=== PATIENT | female | born 1965 | race Two or more races ===

== ENCOUNTER 2018-08-30 19:30 | Inpatient (IN) | payer BC ==
[~2018-08-30] VITALS: Ht 157.5 cm; Wt 52.6 kg
[2018-08-30] MEDS ORDERED: ONDANSETRON HCL 4MG/2ML INJ IV STA (20:49)
[2018-08-30] MEDS ORDERED: HYDRALAZINE 20MG/ML VIAL IV ONE ×2 (21:00→23:00)
[2018-08-30 21:26] LABS: HEMATOCRIT. 38.9 % (36.0-48.0); HEMOGLOBIN. 12.6 g/dL (12.0-16.0); MEAN CORPUSCULAR HEMOGLOBIN 30.4 pg (28.0-32.0); MEAN CORPUSCULAR VOLUME 93.8 fL (81.0-99.0); MEAN PLATELET VOLUME 7.2 fl (7.4-10.4); PLATELET 169 x1000/uL (130-400); RED BLOOD CELL COUNT 4.15 mill/uL (4.2-5.4); RED CELL DISTRIBUTION WIDTH 21.9 % (11.6-14.6)
[2018-08-30 21:28] LABS: CHLORIDE 96 mEq/L (98-107)
[2018-08-30 22:00] LABS: PLATELET ESTIMATE NORMAL
[2018-08-30] MEDS ORDERED: SODIUM CHLORIDE 0.9% 1000ML BAG (SEPSIS BOLUS) IV ONE (22:00)
[2018-08-30] MEDS ORDERED: CEFTRIAXONE 1 G PREMIX 50 ML IV ONE (22:00)
[2018-08-30] MEDS ORDERED: LORAZEPAM 2MG/ML CPJ IV ONE (23:45)
[2018-08-31] VITALS (78 sets, daily range): BP systolic 107–211; BP diastolic 69–111
[2018-08-31] MEDS ORDERED: NICARDIPINE 50 MG in SODIUM CHLORIDE 0.9% 230 ML IV PRN ×2
[2018-08-31] MEDS ORDERED: NICARDIPINE 40MG/200ML PREMIX 200 ML IV PRN ×2 (00:08→05:00)
[2018-08-31] MEDS ORDERED: DOCUSATE SODIUM 100MG CAPSULE PO PRN (00:30)
[2018-08-31] MEDS ORDERED: HYDROCODONE/ACETAMINOPHEN 5/325MG TABLET PO PRN (00:30)
[2018-08-31] MEDS ORDERED: DIPHENHYDRAMINE 50MG/ML VIAL IV PRN (00:30)
[2018-08-31] MEDS ORDERED: ACETAMINOPHEN 325MG TABLET PO PRN (00:30)
[2018-08-31] MEDS: HYDROMORPHONE HCL/PF 2MG/ML CPJ IV PRN ×2 (03:09→06:04)
[2018-08-31] MEDS: ONDANSETRON HCL 4MG/2ML INJ IV PRN ×2 (03:09→09:25)
[2018-08-31] MEDS: CLONIDINE 0.1MG TABLET PO PRN (04:34)
[2018-08-31] MEDS ORDERED: CLONIDINE 0.3MG TABLET PO PRN (05:15)
[2018-08-31] MEDS ORDERED: NITROGLYCERIN 50MG PREMIX 250 ML IV PRN (05:15)
[2018-08-31] MEDS ORDERED: DILTIAZEM HCL 125 MG in DEXT 5% WATER 100 ML IV PRN (05:30)
[2018-08-31 05:43] LABS: CLARITY URINE CLEAR (CLEAR); COLOR URINE YELLOW (YELLOW); KETONES URINE NEGATIVE (NEGATIVE); LEUKOCYTE ESTERASE URINE NEGATIVE (NEGATIVE); NITRITE URINE NEGATIVE (NEGATIVE); OCCULT BLOOD URINE 1+ (NEGATIVE); PH URINE 8.5 (4.5-8.0); PROTEIN URINE 4+ (NEGATIVE); SPECIFIC GRAVITY URINE 1.009 (1.005-1.030); UROBILINOGEN URINE 0.2 E.U./dL (0.2-1.0)
[2018-08-31] MEDS ORDERED: LORAZEPAM 2MG/ML CPJ IV PRN (06:30)
[2018-08-31] MEDS ORDERED: CLON0.3T MT (06:36)
[2018-08-31] MEDS ORDERED: CLON1PAT11 TP (06:39)
[2018-08-31] MEDS ORDERED: FOLI0.8T23 MT (06:46)
[2018-08-31] MEDS ORDERED: NIFE60TA94 PO (06:46)
[2018-08-31] MEDS ORDERED: LOSA100T14 MT (06:46)
[2018-08-31] MEDS ORDERED: HYDRALAZINE HCL 50MG TABLET PO SCH (07:30)
[2018-08-31 07:47] LABS: *BARBITURATES SCREEN URINE NEGATIVE (NEGATIVE)
[2018-08-31 07:48] LABS: *AMPHETAMINES SCREEN URINE NEGATIVE (NEGATIVE); *BENZODIAZEPINES SCREEN URINE NEGATIVE (NEGATIVE); *COCAINE SCREEN URINE NEGATIVE (NEGATIVE); CANNABINOID URINE SCREEN NEGATIVE (NEGATIVE); METHADONE URINE SCREEN NEGATIVE (NEGATIVE); OPIATES URINE SCREEN NEGATIVE (NEGATIVE); PHENCYCLIDINE URINE SCREEN NEGATIVE (NEGATIVE)
[2018-08-31] MEDS: CLONIDINE 0.3MG TABLET PO SCH ×3 (08:35→23:11)
[2018-08-31] MEDS ORDERED: MEDICATION NOT ON FORMULARY EA (Clonidine Hcl 1 TAB) MT SCH (09:00)
[2018-08-31] MEDS ORDERED: AMLODIPINE 10MG TABLET PO SCH (09:00)
[2018-08-31 09:30] LABS: HEMATOCRIT 40.5 % (36.0-48.0); HEMOGLOBIN 12.7 g/dL (12.0-16.0); MEAN CORPUSCULAR HEMOGLOBIN 29.9 pg (28.0-32.0); MEAN CORPUSCULAR VOLUME 95.4 fL (81.0-99.0); PLATELET 174 x1000/uL (130-400); RED BLOOD CELL COUNT 4.25 mill/uL (4.2-5.4); RED CELL DISTRIBUTION WIDTH 22.1 % (11.6-14.6)
[2018-08-31 09:48] LABS: CHLORIDE 98 mEq/L (98-107)
[2018-08-31] MEDS: LISINOPRIL 20MG TABLET PO SCH (10:21)
[2018-08-31] MEDS: METOPROLOL TARTRATE 25MG TABLET PO SCH ×2 (10:22→21:48)
[2018-08-31] MEDS ORDERED: SERT25TA PO (12:00)
[2018-08-31] MEDS ORDERED: HYDR-4135 PO (12:00)
[2018-08-31] MEDS ORDERED: FURO40TA5 PO (12:00)
[2018-08-31] MEDS ORDERED: Auryxia PO (12:03)
[2018-08-31] MEDS: LOSARTAN POTASSIUM 100 MG TABLET PO SCH (13:00)
[2018-08-31] MEDS ORDERED: NIFEDIPINE XL 60MG TAB PO SCH (13:15)
[2018-08-31] MEDS: NIFEDIPINE XL 60MG TAB PO SCH (13:16)
[2018-08-31] MEDS: HYDRALAZINE HCL 100MG TABLET PO SCH ×2 (14:00→22:32)
[2018-08-31] MEDS ORDERED: HYDR200T80 PO (14:06)
[2018-09-01] VITALS (40 sets, daily range): BP systolic 104–201; BP diastolic 56–128
[2018-09-01] MEDS: CLONIDINE 0.3MG TABLET PO SCH ×2 (05:11→21:02)
[2018-09-01] MEDS: HYDRALAZINE HCL 100MG TABLET PO SCH ×3 (05:11→21:01)
[2018-09-01 05:52] LABS: CHLORIDE 102 mEq/L (98-107)
[2018-09-01 05:54] LABS: HEMATOCRIT. 38.9 % (36.0-48.0); HEMOGLOBIN. 12.4 g/dL (12.0-16.0); MEAN CORPUSCULAR HEMOGLOBIN 30.2 pg (28.0-32.0); MEAN CORPUSCULAR VOLUME 94.8 fL (81.0-99.0); MEAN PLATELET VOLUME 7.1 fl (7.4-10.4); PLATELET 126 x1000/uL (130-400); RED CELL DISTRIBUTION WIDTH 22.1 % (11.6-14.6)
[2018-09-01 06:00] LABS: HDL CHOLESTEROL 80 mg/dL (40-59); LDL CHOLESTEROL 73 mg/dL (5-100)
[2018-09-01 08:11] LABS: PLATELET ESTIMATE SLIGHTLY DECREASED
[2018-09-01] MEDS: NIFEDIPINE XL 60MG TAB PO SCH ×2 (08:13→14:41)
[2018-09-01] MEDS: LOSARTAN POTASSIUM 100 MG TABLET PO SCH (08:20)
[2018-09-01] MEDS: LISINOPRIL 20MG TABLET PO SCH (08:22)
[2018-09-01] MEDS: METOPROLOL TARTRATE 25MG TABLET PO SCH ×2 (09:00→21:00)
[2018-09-01] MEDS ORDERED: CLONIDINE 0.1MG TABLET PO SCH (15:00)
[2018-09-01] MEDS: CLONIDINE 0.1MG TABLET PO PRN (16:41)
[2018-09-01] MEDS ORDERED: METOPROLOL TARTRATE 50MG TABLET PO NR (19:00)
[2018-09-01] MEDS ORDERED: SERTRALINE HCL 25MG TABLET PO SCH (21:00)
[2018-09-01] MEDS: HYDROXYCHLOROQUINE SULFATE 200MG TABLET PO SCH (21:49)
[2018-09-02] VITALS (27 sets, daily range): BP systolic 116–158; BP diastolic 72–91
[2018-09-02] MEDS: CLONIDINE 0.3MG TABLET PO SCH (05:40)
[2018-09-02] MEDS: HYDRALAZINE HCL 100MG TABLET PO SCH (05:40)
[2018-09-02] MEDS: METOPROLOL TARTRATE 25MG TABLET PO SCH (09:48)
[2018-09-02] MEDS: LOSARTAN POTASSIUM 100 MG TABLET PO SCH (09:49)
[2018-09-02] MEDS: HYDROXYCHLOROQUINE SULFATE 200MG TABLET PO SCH (09:49)
[2018-09-02] MEDS: NIFEDIPINE XL 60MG TAB PO SCH (09:49)
== END 2018-09-02 10:05 | disposition home or self-care (01) | DRG 291 ==
LOC: ER 19:30 → EDBEDREQ 21:06 → EDBEDREQSVC 08-31 00:03 → EDBEDREQTM 08-31 00:03 → EDBEDREQDT 08-31 00:03 → EDBEDREQ 08-31 00:03 → SUPCPDRO 08-31 00:25 → ENRESERV 08-31 01:42 → CVICU 08-31 02:39
PROVIDERS: ADMIT Hospitalist; ATTEND Hospitalist
PROC: 5A1D70Z Performance of Urinary Filtration, Intermittent, Less than 6 Hours Per Day (ICD-10-PCS; principal; 2018-08-31)
PROC: 5A1D70Z Performance of Urinary Filtration, Intermittent, Less than 6 Hours Per Day (ICD-10-PCS; 2018-09-02)
DX: I13.2 Hypertensive heart and chronic kidney disease with heart failure and with stage 5 chronic kidney disease, or end stage renal disease (principal); I50.33 Acute on chronic diastolic (congestive) heart failure; N18.6 End stage renal disease; I16.9 Hypertensive crisis, unspecified; M32.9 Systemic lupus erythematosus, unspecified; Z99.2 Dependence on renal dialysis; Z88.2 Allergy status to sulfonamides; Z79.899 Other long term (current) drug therapy
CPT/HCPCS: 36415; 71045; 80061; 80305; 83605; 83880; 84443; 84484; 85027; 93005; 93970; 96365; 96366; 96375; 99285; C1893; J0360; J0696; J1170; J2060; J2405; J3490; J7030; J7050; J7060